=== PATIENT | female | born 1955 | race Caucasian/White ===

== ENCOUNTER → 2016-06-18 | Outpatient (CLI) | payer OTHER ==
--- NOTE | 2016-06-18 12:53 | RAD ---
HISTORY: Left hip pain Study: Two views left hip Comparison: None Findings: Normal alignment. No acute fracture or dislocation. The soft tissues are unremarkable. Mild osteoar thritic changes of the bilateral hips. IMPRESSION: 1. Mild degenerative changes without acute osseous abnormality Reported By:
--- NOTE | 2016-06-18 12:56 | RAD ---
HISTORY: Cervicalgia, left-sided neck pain radiating to shoulder Study: Complete cervical spine series Comparison: 01/11/2015 Findings: Normal cervical alignment. Vertebral body heights are preserved. Prevertebral soft tissues are leeann l. There is multilevel spondylosis with degenerative disc space narrowing most prominent at C5-C6 an d C6-C7. There is uncovertebral spurring and facet arthropathy most prominent on the left at C3-C4 w ith resultant bony foraminal narrowing. The visualized odontoid process appears intact. No evidence of acute fracture or subluxation. IMPRESSION: 1. Cervical disc disease at C5-C6 and C6-C7. 2. Bony foraminal narrowing on the left at C3-C4. Reported By:
== END | disposition home or self-care (01) ==
LOC: RAD 11:09
PROVIDERS: ATTEND Nurse Practitioner Family
DX: M25.552 Pain in left hip (principal); M50.322 Other cervical disc degeneration at C5-C6 level; M50.323 Other cervical disc degeneration at C6-C7 level
CPT/HCPCS: 72050; 73501

== ENCOUNTER → 2016-07-03 | Outpatient (CLI) | payer OTHER ==
--- NOTE | 2016-07-04 15:08 | MRI ---
HISTORY: Neck pain, left radiculopathy Study: MRI cervical spine without contrast Comparison: None Technique: Multiplanar multisequence MRI of the cervical spine was obtained utilizing standard [facility] protocol. Findings: Alignment of the cervical spine is maintained. No abnormal signal characteristics of the bone marro w can be identified. No evidence for fracture or significant bone or edema can be seen. The surrou nding soft tissues are unremarkable. The cervical spinal cord is normal in size and configuration a nd without foci of abnormal signal. C2 -- C3: No evidence for compressive disc disease. The neural foramina are patent. C3 -- C4: No evidence for compressive disc disease. The neural foramina are patent. C4 -- C5: No evidence for compressive disc disease. The neural foramina are patent. C5 -- C6: There is a central and rightward disc protrusion which effaces the thecal sac, contributes to mild canal stenosis and mild compression of the right anterior aspect of the cervical spinal cor d. It contributes to mild foraminal narrowing on the right. The left neural foramen is patent. C6 -- C7: Broad-based disk bulging effaces the thecal sac and contributes to mild canal stenosis but no significant cord compression. The neural foramina are patent. C7 -- T1: No evidence for compressive disc disease. The neural foramina are patent. IMPRESSION: As above Reported By:
== END | disposition home or self-care (01) ==
LOC: RAD 09:05
PROVIDERS: ATTEND Nurse Practitioner Family
DX: M50.222 Other cervical disc displacement at C5-C6 level (principal)
CPT/HCPCS: 72141

== ENCOUNTER 2017-03-15 15:34 | Emergency (ER) | payer OTHER ==
[2017-03-15 16:09] VITALS: BP 140/64; BMI 32.1
--- NOTE | 2017-03-15 16:48 | DR.GENAD ---
HPI - PCP Primary Care Physician: MINDY - HPI Comment HPI Comment: HISTORY BELOW. - Complaint/Symptoms Chief Complaint Doctors Comments: FELL, HEADACHE, NECK PAIN, UPPER BACK PAIN WITH PARESTHESIA, LEFT SHOULDER PAIN, LEFT FOREARM PAIN LT HAND AND RT ANKLE PAIN. WORSE TODAY. TAKE PAIN MED BUT PAIN IS STILL SEVER. Chief Complaint:: PATIENT FELL 2 DAYS AGO AND NOW IS HURTING ALL OVER HER BODY - Nurses notes reviewed Nurses Notes Review: Yes - Source History Provided: Patient - Mode of Arrival Mode of Arrival: Ambulatory - Timing Onset of Chief Complaint: 03/13/17 Came on: Suddenly - Duration Duration: Constant Duration: Days - Severity Severity: Moderate PMH - PMH Past Medical History: Yes Past Medical History: Arthritis Past Surgical History: Yes Surgical History: Hysterectomy - Family History History of Family Medical Conditions: Yes Family Medical History: Diabetes Mellitus, Cancer, [place], Coronary Artery Disease, Heart Failure, Sudden Cardiac , Hypertension - Social History Does patient currently use any type of tobacco product: Yes Have you used tobacco products in the last 12 months: Yes Type of Tobacco Use: Cigarettes Does any household member use tobacco: No Alcohol Use: None Do you use any recreational Drugs:: No Lives With: Family Lives Where: Home - infectious screening In the last 2 months have you had wt loss of >10#?: NO Have you had fever, night sweats or hemotysis?: No Have you traveled outside the country in the last 6 months?: No Isolation: Standard ROS - Review of Systems Constitutional: No Symptoms Reported Eyes: No Symptoms Reported ENTM: No Symptoms Reported Respiratoy: No Symptoms Reported Cardiovascular: No Symptoms Reported Gastrointestinal/Abdominal: No Symptoms Reported Genitourinary: No Symptoms Reported Neurological: Numbness, Paresthesia Musculoskeletal: Back Pain (UPPER), Neck, Shoulder, Forearm, Hand, Ankle, Foot Integumentary: Bruises Hematologic/Lymphatic: No Symptoms Reported Endocrine: No Symptoms Reported All Other Systems: Reviewed and Negative PE - Vital Signs Vitals: Temperature 97.9 F Pulse Rate 87 Respiratory Rate 20 Blood Pressure 140/64 O2 Sat by Pulse Oximetry 96 - General Limitations: No Limitations General Appearance: Alert - Head Head Exam: Normal Inspection - Eyes Eye exam: Normal Appearance - ENT ENT Exam: Normal External Ear Exam External Ear Exam: Normal External Inspection TM/Canal Exam: Bilateral Normal Nose Exam: Normal Nose Exam Mouth Exam: Normal Inspection Throat Exam: Normal Inspection - Neck Neck Exam: Trachea Midline, Tenderness (POSTERIOR NECK TENDER.) - Chest Chest Inspection: Symmetric Chest Wall Rise, Tenderness - Respiratory Respiratory Exam: Normal Lung Sounds Bilat Respiratory Exam: Bilateral Clear to Auscultation - Cardiovascular Cardiovascular Exam: Regular Rate, Normal Rhythm, Normal Heart Sounds - Abdominal Exam Abdominal Exam: Normal Bowel Sounds, Soft. negative: Tenderness - Extremities Extremities Exam: Tenderness (LEFT HAND, FOREARM AND SHOULDER TENDER.ROM DECREASE.) - Back Back Exam: Paraspinal Tenderness (UPPER BACK) - Neurologic Neurological Exam: Alert, Oriented X3 - Psychiatric Psychiatric Exam: Anxious - Skin Skin Exam: Erythema MDM - Additional Information Additional Information Obtained From: Family - Differential Diagnosis Differential Diagnosis: CONTUSION, FRACTURE. SPRAIN, STRAIN Course - Treatment Treatment: SEE ORDER. - Education/Counseling Education/Counseling: Patient, Family, Education Educated On: Diagnosis, Needs for Follow Up ROR - XRAY XRAY Interpreted by: Radiologist XRAY Findings: REPORT DISCUSS WITH PATIENT. - Diagnosis Discharge Problem: Sprain of ligaments of cervical spine Qualifiers: Encounter type: initial encounter Qualified Code(s): S13.4XXA - Sprain of ligaments of cervical spine, initial encounter Headache Qualifiers: Headache type: unspecified Headache chronicity pattern: acute headache Intractability: intractable Qualified Code(s): R51 - Headache Sinusitis Qualifiers: Sinusitis location: unspecified location Chronicity: acute Recurrence: not specified as recurrent Qualified Code(s): J01.90 - Acute sinusitis, unspecified Sprain of left shoulder Qualifiers: Encounter type: initial encounter Shoulder sprain type: unspecified sprain Qualified Code(s): S43.402A - Unspecified sprain of left shoulder joint, initial encounter Wrist sprain Qualifiers: Encounter type: initial encounter Laterality: unspecified laterality Qualified Code(s): S63.509A - Unspecified sprain of unspecified wrist, initial encounter Forearm strain Qualifiers: Encounter type: initial encounter Laterality: left Qualified Code(s): S56.912A - Strain of unspecified muscles, fascia and tendons at forearm level, left arm, initial encounter Ankle sprain Qualifiers: Encounter type: initial encounter Involved ligament of ankle: unspecified ligament Laterality: right Qualified Code(s): S93.401A - Sprain of unspecified ligament of right ankle, initial encounter - Discharge Plan Disposition: 01 HOME, SELF-CARE Condition: Stable Prescriptions: Amoxicillin [Amoxil 875 mg] 875 mg PO Q12H #20 tab - Follow ups/Referrals Follow ups/Referrals: DANIEL GUILLEN [Primary Care Provider] - 3 days - Instructions Instructions: Sinusitis, Adult, [id number], Musculoskeletal Pain, Fall Prevention in the Home Additional Instructions: RETURN TO ED IF WORSE.
--- NOTE | 2017-03-15 17:39 | CT ---
History: Fall T days ago with pain Stud CT head without contrast. Sagittal and coronal reformations were provided. Comparison: None Findings: The ventricles and sulci are of normal size and configuration for patient age without mass effect. There is no intracranial hemorrhage or mass or edema or subdural collection of fluid. The angelika varium is intact. There is an air-fluid level in the left maxillary sinus. No fracture is demonstrate d. Impression: 1. No acute intracranial disease 2. Left maxillary sinus disease Reported By:
--- NOTE | 2017-03-15 17:41 | CT ---
History: Fall 2 days ago with back pain Study: CT thoracic spine without contrast. Sagittal and coronal reformations were provided. Findings: There is normal alignment without fracture or compression. The spinous processes are intact . There is minimal degenerative disc disease. The visualized posterior ribs are intact. Impression: No acute disease Reported By:
--- NOTE | 2017-03-15 17:44 | CT ---
History: Fall 2 days ago with neck pain Study: CT cervical spine without contrast. Sagittal and coronal reformations were provided. Findings: There is normal alignment with moderate C5-6 and C6-7 disc space narrowing and associated p rominent osteophyte formation anteriorly primarily at C6-7. There is severe osteophytes about the C2- 3 facet joint on the right in the C3-4 facet joint on the left. The spinous processes are intact. Impression: Severe lower cervical degenerative disc disease and facet joint osteoarthritis as describ ed. No fracture demonstrated. Reported By:
--- NOTE | 2017-03-15 17:52 | RAD ---
HAND RADIOGRAPHS CLINICAL HISTORY: 61-year-old male status post fall 2 days prior with diffuse pain. COMPARISON: None. FINDINGS: 3 views of the left hand were obtained. These demonstrate no acute fracture or malalignment . The joint spaces are maintained. There is no erosion, aggressive bone lesion or abnormal periostea l reaction. There is no soft tissue calcification or gas. The mineralization is maintained. IMPRESSION: No acute fracture or osseous abnormality demonstrated on left hand radiographs. Reported By:
--- NOTE | 2017-03-15 17:58 | RAD ---
HISTORY: Fall 2 days ago with Study: 3 views of the left shoulder. Comparison: None Findings: No acute fractures or dislocations. The glenohumeral articulation is normal in its appearance. No gr oss soft tissue abnormalities. The acromioclavicular joint is normal in appearance. IMPRESSION: 1. No acute abnormality of the left shoulder. Reported By:
--- NOTE | 2017-03-15 18:04 | RAD ---
HISTORY: 61-year-old female status post fall 2 days prior with pain diffusely. Study: Three views right ankle. Comparison: None. Findings: Talar dome is intact. No acute cortical disruption or dislocation can be identified. The ankle morti se remains well aligned. No significant soft tissue swelling or injury can be seen. The visualized portions of the talus and calcaneus are unremarkable. IMPRESSION: 1. Negative exam. Reported By:
--- NOTE | 2017-03-15 18:05 | RAD ---
FOREARM RADIOGRAPHS: CLINICAL HISTORY: 61-year-old female status post fall 2 days prior with diffuse pain. COMPARISON: None. FINDINGS: Frontal and lateral views of the left forearm were obtained. These demonstrate no acute fra cture or malalignment. The wrist and elbow articulations are congruent on provided views. The ampoule examiner alization is maintained. There is no aggressive bone lesion or abnormal periosteal reaction. There is no radiopaque foreign body, soft tissue calcification or gas. IMPRESSION: No acute fracture or osseous abnormality demonstrated on left forearm radiographs. Reported By:
[2017-03-15] MEDS ORDERED: DILAUDID INJ IM ONE (18:11)
== END 2017-03-15 18:34 | disposition home or self-care (01) ==
LOC: ER 16:15
DX: S13.4XXA Sprain of ligaments of cervical spine, initial encounter (principal); R51 Headache; J01.80 Other acute sinusitis; S43.402A Unspecified sprain of left shoulder joint, initial encounter; S63.509A Unspecified sprain of unspecified wrist, initial encounter; S56.912A Strain of unspecified muscles, fascia and tendons at forearm level, left arm, initial encounter; S93.401A Sprain of unspecified ligament of right ankle, initial encounter; M50.30 Other cervical disc degeneration, unspecified cervical region; W19.XXXA Unspecified fall, initial encounter; Y92.9 Unspecified place or not applicable
CPT/HCPCS: 70450; 72125; 72128; 73030; 73090; 73130; 73610; 96372; 99282